=== PATIENT | male | born 1985 | race Two or more races ===

== ENCOUNTER 2018-08-19 09:33 | Emergency (ER) | payer OTHER ==
[2018-08-19] MEDS ORDERED: DEXAMETHASONE 10 MG/ML VIAL PO STA (11:11)
[2018-08-19] MEDS ORDERED: KETOROLAC 60 MG/2 ML VIAL IM STA (11:11)
[2018-08-19] MEDS ORDERED: CHERRY SYRUP 10 ML UDC PO ONE (11:11)
--- NOTE | 2018-08-19 11:14 | ED Physician Documentation ---
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 He is having this pain with any movement and with direct palpation. He does do a lot of heavy lifting for the [employer] and he does not recall a specific incident that caused this but he does acknowledge this would be likely. Review of Systems Constitutional: denies: Fever Eyes: denies: Decreased vision Ears: denies: Ear pain Nose: denies: Congestion Throat: denies: Sore throat Cardiac: denies: Chest pain / pressure, Palpitations Respiratory: denies: Dyspnea, Cough GI: denies: Abdominal Pain, Nausea, Vomiting : denies: Dysuria, Frequency Skin: denies: Rash Musculoskeletal: reports: Back pain. denies: Neck pain, Extremity pain Neurologic: denies: Generalized weakness, Focal weakness, Numbness PD PAST MEDICAL HISTORY - Past Medical History Past Medical History: No Cardiovascular: None Respiratory: None Neuro: None GI: None : None HEENT: None Psych: None Musculoskeletal: None Derm: None - Past Surgical History Past Surgical History: No - Present Medications Home Medications: Ambulatory Orders Medication Instructions Recorded Confirmed Cyclobenzaprine [Flexeril] 10 mg PO TID PRN #20 tablet 08/19/18 Hydrocodone/Acetaminophen 1 - 2 each PO Q6H PRN #14 tablet 08/19/18 [Hydrocodon-Acetaminophen 5-325] - Allergies Allergies/Adverse Reactions: Allergies Allergy/AdvReac Type Severity Reaction Status Date / Time No Known Drug Allergies Allergy Verified 08/19/18 09:43 - Social History Does the pt smoke?: No Smoking Status: Never smoker Does the pt drink ETOH?: No Does the pt have substance abuse?: No - Immunizations Immunizations are current?: No - POLST Patient has POLST: No PD ED PE NORMAL - Vitals Vital signs reviewed: Yes (hypertensive ) - General General: Alert and oriented X 3, No acute distress, Well developed/nourished, Other (fit appearing young man appears to move slowly as if in pain. ) - HEENT HEENT: Atraumatic, PERRL, EOMI - Neck Neck: Supple, no meningeal sign, No bony TTP - Cardiac Cardiac: RRR, No murmur - Respiratory Respiratory: No respiratory distress, Clear bilaterally - Back Back: No CVA TTP, No spinal TTP, Other (There is point tenderness to the lower rhomboid muscles on the left side reproducing the symptoms the patient is expriencing. ) - Extremities Extremities: No deformity, No edema - Neuro Neuro: Alert and oriented X 3, No motor deficit, No sensory deficit, Normal speech Eye Opening: Spontaneous Motor: Obeys Commands Verbal: Oriented GCS Score: 15 - Psych Psych: Normal mood, Normal affect Results - Vitals Vitals: Vital Signs - 24 hr 08/19/18 09:41 Temperature 36.5 C Heart Rate 68 Respiratory 14 Rate Blood Pressure 150/100 H O2 Saturation 98 Oxygen O2 Source Room air PD MEDICAL DECISION MAKING - ED course Complexity details: considered differential, d/w patient, d/w family ED course: 32-year-old male appears to be in significant pain with any movement has point tenderness over the rhomboid area which reproduces his symptoms and he is administered dexamethasone 10 mg orally and Toradol 60 mg IM. Departure - Departure Disposition: 01 Home, Self Care Clinical Impression: Rhomboid muscle pain Condition: Stable Instructions: ED Spasm Back No Trauma Follow-Up: [facility] [Provider Group] Prescriptions: Cyclobenzaprine [Flexeril] 10 mg PO TID PRN #20 tablet PRN Reason: Spasms Hydrocodone/Acetaminophen [Hydrocodon-Acetaminophen 5-325] 1 - 2 each PO Q6H PRN #14 tablet PRN Reason: pain Forms: Activity restrictions
[2018-08-19 11:32] VITALS: BP 124/83
== END 2018-08-19 11:32 | disposition home or self-care (01) ==
LOC: EDBD → ED 09:33
DX: M79.18 Myalgia, other site (principal)
CPT/HCPCS: 96372; 99283; A9270

== ENCOUNTER 2019-07-08 23:55 | Emergency (ER) | payer OTHER ==
--- NOTE | 2019-07-09 00:08 | ED Physician Documentation ---
History of Present Illness - Stated complaint Stated Complaint: RASH/LIP SWELLING - Chief complaint Chief Complaint: Allergic Rx - History obtained from History obtained from: Patient (the patient is a 33 Y/O AD [employer] M with a cc of rash and possible allergic reaction, took benadryl prior to arrival and is feeling better currently. patient has follow up in 6 hours at [facility]. patient reported lip swelling that has resovled and diffuse hives with resp distress or chest pain, took robitussin previously for cold symptoms. patient denies any hx of previous similar episodes. otherwise healthy does not take any daily medications.) Review of Systems Constitutional: reports: Reviewed and negative Eyes: reports: Reviewed and negative Ears: reports: Reviewed and negative Nose: reports: Reviewed and negative Throat: reports: Reviewed and negative Cardiac: reports: Reviewed and negative Respiratory: reports: Reviewed and negative GI: reports: Reviewed and negative : reports: Reviewed and negative Skin: reports: Rash, Other (allergic reaction) Musculoskeletal: reports: Reviewed and negative Neurologic: reports: Reviewed and negative Psychiatric: reports: Reviewed and negative Endocrine: reports: Reviewed and negative Immunocompromised: reports: Reviewed and negative PD PAST MEDICAL HISTORY - Past Medical History Cardiovascular: None Respiratory: None Neuro: None GI: None : None HEENT: None Psych: None Musculoskeletal: None Derm: None - Past Surgical History Past Surgical History: No - Present Medications Home Medications: Ambulatory Orders Medication Instructions Recorded Confirmed Cyclobenzaprine [Flexeril] 10 mg PO TID PRN #20 tablet 08/19/18 Hydrocodone/Acetaminophen 1 - 2 each PO Q6H PRN #14 tablet 08/19/18 [Hydrocodon-Acetaminophen 5-325] EPINEPHrine [Epinephrine] 0.3 mg IJ ONCE PRN #1 auto.injct 07/09/19 Famotidine [Pepcid] 40 mg PO DAILY #7 tablet 07/09/19 diphenhydrAMINE [Benadryl] 25 mg PO Q4-6H PRN #10 capsule 07/09/19 predniSONE [Prednisone] 50 mg PO DAILY 5 Days #5 tablet 07/09/19 - Allergies Allergies/Adverse Reactions: Allergies Allergy/AdvReac Type Severity Reaction Status Date / Time No Known Drug Allergies Allergy Verified 07/09/19 00:01 - Social History Does the pt smoke?: No Smoking Status: Never smoker Does the pt drink ETOH?: No Does the pt have substance abuse?: No - Immunizations Immunizations are current?: No - POLST Patient has POLST: No PD ED PE NORMAL - Vitals Vital signs reviewed: Yes - General General: Alert and oriented X 3, No acute distress, Well developed/nourished - HEENT HEENT: Atraumatic, PERRL, Moist mucous membranes, Pharynx benign, Dentition benign - Neck Neck: Supple, no meningeal sign, No adenopathy - Cardiac Cardiac: RRR, No murmur, Strong equal pulses - Respiratory Respiratory: No respiratory distress, Clear bilaterally, Other - Abdomen Abdomen: Normal bowel sounds, Soft, Non tender, Non distended, No organomegaly - Back Back: No CVA TTP, No spinal TTP - Derm Derm: Warm and dry, Other (diffuse urticarial rash on b/l UE and LE, no rash on face or neck, some involvement of ant/post trunk. no involvement of mucous membranes. 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 prescriptions provided for prednisone burst, benadryl, pepcid and an epipen.), considered differential (allergic reaction, viral exanthem) Departure - Departure Disposition: 01 Home, Self Care Clinical Impression: Allergic reaction Qualifiers: Encounter type: initial encounter Qualified Code(s): T78.40XA - Allergy, unspecified, initial encounter Condition: Stable Instructions: ED Allergic Reaction General Other Follow-Up: SHELDON BUTT MD [Primary Care Provider] - 07/09/19 Prescriptions: diphenhydrAMINE [Benadryl] 25 mg PO Q4-6H PRN #10 capsule PRN Reason: Itching EPINEPHrine [Epinephrine] 0.3 mg IJ ONCE PRN #1 auto.injct PRN Reason: Anaphylaxis Famotidine [Pepcid] 40 mg PO DAILY #7 tablet predniSONE [Prednisone] 50 mg PO DAILY 5 Days #5 tablet
[2019-07-09] MEDS ORDERED: FAMOTIDINE 20 MG TABLET PO STA (00:26)
[2019-07-09] MEDS ORDERED: predniSONE 20 MG TABLET PO STA (00:26)
[2019-07-09 01:03] VITALS: BP 122/76
== END 2019-07-09 01:03 | disposition home or self-care (01) ==
LOC: ED 23:55
DX: T78.40XA Allergy, unspecified, initial encounter (principal)
CPT/HCPCS: 99283; A9270; J7512